=== PATIENT | female | born 1955 | race Caucasian/White ===

== ENCOUNTER 2016-07-28 15:49 | Emergency (ER) | payer OTHER ==
[~2016-07-28] VITALS: Ht 157.5 cm; Wt 46.4 kg
[~2016-07-28 15:49] MED LIST: AMOXICILLIN 8751 TAB PO; ASPI325T6 PO; ASPIRIN 32325 MG/TAB PO; ASPIRIN E.C. 8181 MG PO; ASPIRIN E.C.325 MG PO; BETIMOL 0.5% OPH5 ML OU; BLOOD PRESSURE MEDS; BREO IH; CARDI-OMEGA1000 MG PO; CELEXA40 MG PO; CEPHALEXIN500 M1 PO; CLARITIN 1010 MG/TAB PO; COD LIVER OIL 11 SGL; COLESTID 1GM1 G PO; COREG 3.123.125 MG/T PO; COREG 6.256.25 MG/TA PO; COSOPT OCUMETER10 M1 OP; COZAAR 50MG50 MG/TAB PO; COZAAR100 MG PO; CRESTOR5 MG PO; DESYREL 50MG50 MG PO; ESCITALOPRAM; FORTEO250 MCG/ML SQ; FOSAMAX PO; FUROSEMIDE; KEPPRA 500MG500 MG PO; KEPPRA XR500 MG PO; KLOR-CON M1010 MEQ PO; LANOXIN 0.120.125 MG PO; LASIX 20MG TABL20 MG PO; LASIX 40MG TABL40 MG PO; LIPITOR 40MG TA40 MG PO; LORTAB 5/500 501 TAB PO; METROCREAM CREA45 GM TOP; MIACALCIN NASA3.7 ML NS; NASAL SALINE 4545 ML NS; NORVASC 5MG5 MG/TAB PO; NORVASC5 MG PO; OMEGA-3 1000 MG1 CAP PO; ORACEA40MG; OYSTER CALCIUM500 M1 PO; PEPCID 20MG TAB20 MG PO; PLAVIX 75MG TAB75 MG PO; PRAVACHOL10 MG PO; PROAIR HFA0.09 MG/AC IH; PROTONIX 40MG T40 MG PO; RESTASIS 0.4 M0.4 ML; RESTASIS0.05% OP; TEGRETOL PO; TEMOVATE E TP; TESSALON P100 MG/CAP PO; TIAZAC360 MG PO; TOPROL; TOPROL XL 50MG50 MG PO; VENTOLIN0.09 MG IH; VITAMIN D32000 I1 PO; XALATAN EYE DROPS OD; XALATAN EYE DROPS OP; ZITHROMAX Z PA250 MG PO; ZOCOR PO; ZOFRAN 4MG T4 MG/TAB PO; ZOFRAN ODT4 MG PO; ZYRTEC 10MG10 MG PO; [UNRECOGNIZED DRUG - REMARK]
[2016-07-28 15:51] VITALS: BP 138/65; TEMP 96.9
[2016-07-28 16:56] LABS: PH 5 (5-8); SQUAMOUS EPITHELIAL 0-2 /hpf; URINE APPEARANCE Clear; URINE BACTERIA None Seen /hpf; URINE BILIRUBIN Negative (NEGATIVE); URINE BLOOD Negative (NEGATIVE); URINE COLOR Yellow; URINE GLUCOSE Negative (NEGATIVE); URINE KETONE Negative (NEGATIVE); URINE RBC 0-2 /hpf; URINE UROBILINOGEN Negative (NEGATIVE); URINE WBC 0-2 /hpf
[2016-07-28] MEDS ORDERED: NORCO 325 MG-51 TAB PO (17:45)
[2016-07-28 18:09] VITALS: PULSE 64
== END 2016-07-28 18:10 | disposition home or self-care (01) ==
LOC: COL.ER 15:49
PROVIDERS: Nurse Practitioner
DX: M48.54XA Collapsed vertebra, not elsewhere classified, thoracic region, initial encounter for fracture (principal); W01.198A Fall on same level from slipping, tripping and stumbling with subsequent striking against other object, initial encounter; Z95.2 Presence of prosthetic heart valve
CPT/HCPCS: J1170

== ENCOUNTER → 2016-08-06 | Outpatient (CLI) | payer OTHER ==
[~2016-08-06] MED LIST changes: +ALDACTONE50 MG PO; +AMBIEN 5MG TABLE5 MG PO; +APRESOLINE 10MG10 MG PO; +COZAAR 25MG25 MG/TAB PO; +CRESTOR40 MG PO; +DIGITEK0.125 MG PO; +FERRO-TIME325 MG PO; +FLONASEALLERGY NS; +ISTALOL 2.5 ML2.5 ML OD; +LEVAQUIN 750MG750 M1 PO; +MICRO-K 10 EXT10 MEQ PO; +NORCO 325 MG-51 TAB PO; +OSCAL 500 TAB500 MG PO; +REFRESH PLUS 00.4 M1 OU; +RESTASIS 60VL OU; +ROXICODONE 55 MG/TAB PO; +SPIRIVA RE2.5 MCG/Ac IH; +ULTRAM 50MG TAB50 MG PO; +VIGAMOX 0.5% 3 M3 ML OP; +XANAX 0.5MG0.5 MG PO; +ZOFRAN8 MG PO
== END ==
LOC: COL.RAD 08:36
DX: S22.080A Wedge compression fracture of T11-T12 vertebra, initial encounter for closed fracture (principal)
CPT/HCPCS: A9503

== ENCOUNTER 2016-08-09 12:17 | Outpatient (CLI) | payer OTHER ==
[~2016-08-09] VITALS: Ht 157.5 cm; Wt 46.8 kg
[2016-08-09] VITALS (8 sets, daily range): BP systolic 127–150; BP diastolic 69–87; PULSE 70–77
[~2016-08-09 12:17] MED LIST changes: -ALDACTONE50 MG PO; -AMBIEN 5MG TABLE5 MG PO; -APRESOLINE 10MG10 MG PO; -COZAAR 25MG25 MG/TAB PO; -CRESTOR40 MG PO; -DIGITEK0.125 MG PO; -FERRO-TIME325 MG PO; -FLONASEALLERGY NS; -ISTALOL 2.5 ML2.5 ML OD; -LEVAQUIN 750MG750 M1 PO; -MICRO-K 10 EXT10 MEQ PO; -OSCAL 500 TAB500 MG PO; -REFRESH PLUS 00.4 M1 OU; -RESTASIS 60VL OU; -ROXICODONE 55 MG/TAB PO; -SPIRIVA RE2.5 MCG/Ac IH; -ULTRAM 50MG TAB50 MG PO; -VIGAMOX 0.5% 3 M3 ML OP; -XANAX 0.5MG0.5 MG PO; -ZOFRAN8 MG PO
[2016-08-09] MEDS ORDERED: COREG 3.123.125 MG/T PO (13:50)
[2016-08-09] MEDS ORDERED: ROXICODONE 55 MG/TAB PO (13:50)
[2016-08-09] MEDS ORDERED: CRESTOR40 MG PO (13:52)
[2016-08-09] MEDS ORDERED: COZAAR 25MG25 MG/TAB PO (14:23)
[2016-08-09] MEDS ORDERED: SPIRIVA RE2.5 MCG/Ac IH (14:24)
[2016-08-09] MEDS ORDERED: VIGAMOX 0.5% 3 M3 ML OP (14:24)
[2016-08-09] MEDS ORDERED: PROAIR HFA0.09 MG/AC IH (14:28)
== END 2016-08-09 19:00 | disposition home or self-care (01) ==
LOC: EUO 12:17 → COL.RAD 12:30 → EUO 19:00
DX: S22.088G Other fracture of T11-T12 vertebra, subsequent encounter for fracture with delayed healing (principal); X58.XXXD Exposure to other specified factors, subsequent encounter
CPT/HCPCS: J2250; J3010; J7120

== ENCOUNTER 2016-09-12 03:35 | Observation (INO) | payer OTHER ==
[~2016-09-12] VITALS: Ht 160 cm; Wt 48.0 kg
[~2016-09-12 03:35] MED LIST changes: +COZAAR 25MG25 MG/TAB PO; +CRESTOR40 MG PO; +ROXICODONE 55 MG/TAB PO; +SPIRIVA RE2.5 MCG/Ac IH; +VIGAMOX 0.5% 3 M3 ML OP
[2016-09-12] MEDS ORDERED: ZOFRAN8 MG PO (03:53)
[2016-09-12] MEDS ORDERED: ULTRAM 50MG TAB50 MG PO (03:53)
[2016-09-12 04:29] LABS: BASO # 0.1 (0.0-0.2); BASO % 0.9 % (0.0-2.0); EOS # 0.3 (0.0-0.7); EOS % 3.3 % (0-4.0); GRAN # 4.9 (1.4-6.5); GRAN % 59.1 % (42.2-75.2); HEMATOCRIT 40.3 % (37.0-47.0); HEMOGLOBIN 14.3 g/dl (12.5-16.0); LYMPH # 2.1 (1.2-3.4); LYMPH % 25.2 % (20.0-51.0); MEAN CELL VOLUME 96 fl (80.0-100.0); MEAN CORPUSCULAR HEMOGLOBIN 34 pg (27.0-31.0); MEAN CORPUSCULAR HGB CONC 36 g/dl (33.0-37.0); MEAN PLATELET VOLUME 9.4 fl (7.4-10.4); MONO # 0.9 (0.1-0.6); MONO % 11.1 % (1.7-9.3); PLATELET COUNT 258 K/mm3 (130-400); RED BLOOD COUNT 4.22 M/mm3 (4.10-5.30); REDCELL DISTRIBUTION WIDTH-CV 13.5 % (11.5-14.5); WHITE BLOOD COUNT 8.2 K/mm3 (4.8-10.8)
[2016-09-12 04:36] LABS: CALCIUM 9.5 mg/dL (8.4-10.2); CREATININE, serum 0.77 mg/dL (0.52-1.25); POTASSIUM 4.2 mmol/L (3.4-5.0)
[2016-09-12 04:49] LABS: TROPONIN-I 0.038 ng/mL (0.000-0.034)
[2016-09-12 06:01] VITALS: BP 143/76; PULSE 69; TEMP 97.6
[2016-09-12] MEDS ORDERED: NORCO 325 MG-51 TAB PO (06:24)
[2016-09-12 08:56] VITALS: BP 116/69; PULSE 70; TEMP 97.5
[2016-09-12 12:02] VITALS: BP 130/93; PULSE 63; TEMP 97.5
[2016-09-12 16:02] VITALS: BP 132/62; PULSE 70; TEMP 97.6
[2016-09-12 19:49] VITALS: BP 119/67; PULSE 70; TEMP 97.6
[2016-09-13 00:08] VITALS: BP 124/62; PULSE 113; TEMP 97.4
[2016-09-13 04:37] VITALS: BP 129/70; PULSE 70; TEMP 97.9
[2016-09-13 07:41] LABS: CALCIUM 9.5 mg/dL (8.4-10.2); CREATININE, serum 0.93 mg/dL (0.52-1.25); POTASSIUM 4.1 mmol/L (3.4-5.0)
[2016-09-13 07:53] LABS: TROPONIN-I 0.04 ng/mL (0.000-0.034)
[2016-09-13 08:20] VITALS: BP 131/67; PULSE 69; TEMP 97.9
[2016-09-13] MEDS ORDERED: ZITHROMAX Z PA250 MG PO (12:20)
[2016-09-13 12:21] VITALS: BP 144/71; PULSE 70; TEMP 97.8
[2016-09-13] MEDS ORDERED: FLONASEALLERGY NS (13:12)
[2016-09-13] MEDS ORDERED: ZYRTEC 10MG10 MG PO (13:36)
[2016-09-14] MEDS ORDERED: LEVAQUIN 750MG750 M1 PO (23:40)
== END 2016-09-13 15:17 | disposition home or self-care (01) ==
LOC: COL.ER 03:35 → MEDICAL 05:11
PROVIDERS: Emergency Medicine; Nurse Practitioner Family
DX: R06.00 Dyspnea, unspecified (principal); J90 Pleural effusion, not elsewhere classified; R79.89 Other specified abnormal findings of blood chemistry; E44.0 Moderate protein-calorie malnutrition; Z68.1 Body mass index [BMI] 19.9 or less, adult; Z98.890 Other specified postprocedural states; E87.1 Hypo-osmolality and hyponatremia; I34.0 Nonrheumatic mitral (valve) insufficiency; I10 Essential (primary) hypertension; E78.5 Hyperlipidemia, unspecified; M81.0 Age-related osteoporosis without current pathological fracture; G40.909 Epilepsy, unspecified, not intractable, without status epilepticus; I49.5 Sick sinus syndrome; I25.10 Atherosclerotic heart disease of native coronary artery without angina pectoris; Z95.0 Presence of cardiac pacemaker; I50.42 Chronic combined systolic (congestive) and diastolic (congestive) heart failure; Z95.5 Presence of coronary angioplasty implant and graft; Z87.891 Personal history of nicotine dependence
CPT/HCPCS: A9284; G0378; J1940; J7512

== ENCOUNTER 2016-09-14 21:08 | Emergency (ER) | payer OTHER ==
[~2016-09-14] VITALS: Ht 160 cm; Wt 47.3 kg
[~2016-09-14 21:08] MED LIST changes: +FLONASEALLERGY NS; +ULTRAM 50MG TAB50 MG PO; +ZOFRAN8 MG PO
[2016-09-14 21:09] VITALS: TEMP 97.5
[2016-09-14 22:35] LABS: BASO # 0.1 (0.0-0.2); BASO % 0.6 % (0.0-2.0); EOS # 0.3 (0.0-0.7); EOS % 2.5 % (0-4.0); GRAN % 74.6 % (42.2-75.2); HEMATOCRIT 43.4 % (37.0-47.0); HEMOGLOBIN 14.9 g/dl (12.5-16.0); LYMPH # 1.6 (1.2-3.4); LYMPH % 12.1 % (20.0-51.0); MEAN CELL VOLUME 97 fl (80.0-100.0); MEAN CORPUSCULAR HEMOGLOBIN 33 pg (27.0-31.0); MEAN CORPUSCULAR HGB CONC 34 g/dl (33.0-37.0); MEAN PLATELET VOLUME 9.2 fl (7.4-10.4); MONO # 1.3 (0.1-0.6); MONO % 9.7 % (1.7-9.3); PLATELET COUNT 261 K/mm3 (130-400); RED BLOOD COUNT 4.46 M/mm3 (4.10-5.30); REDCELL DISTRIBUTION WIDTH-CV 13.7 % (11.5-14.5); WHITE BLOOD COUNT 13.4 K/mm3 (4.8-10.8)
[2016-09-14 22:42] LABS: VENOUS BLOOD GAS BE -4.7 (-4-4); VENOUS BLOOD GAS SAO2 87.7 % (60-80); VENOUS BLOOD GAS SITE VENIPUNCTURE
[2016-09-14 22:48] LABS: CREATININE, serum 0.65 mg/dL (0.52-1.25); POTASSIUM 4.7 mmol/L (3.4-5.0)
[2016-09-14] MEDS ORDERED: LEVAQUIN 750MG750 M1 PO (23:40)
[2016-09-14 23:44] LABS: TROPONIN-I 0.028 ng/mL (0.000-0.034)
[2016-09-15 00:15] VITALS: BP 128/68; PULSE 64
== END 2016-09-15 00:20 | disposition home or self-care (01) ==
LOC: COL.ER 21:08
PROVIDERS: Emergency Medicine
DX: J90 Pleural effusion, not elsewhere classified (principal); I11.0 Hypertensive heart disease with heart failure; I50.9 Heart failure, unspecified; Z87.891 Personal history of nicotine dependence; Z95.0 Presence of cardiac pacemaker; Z79.02 Long term (current) use of antithrombotics/antiplatelets; I25.10 Atherosclerotic heart disease of native coronary artery without angina pectoris; I25.2 Old myocardial infarction; G40.909 Epilepsy, unspecified, not intractable, without status epilepticus; I49.5 Sick sinus syndrome; F41.9 Anxiety disorder, unspecified
CPT/HCPCS: J1940; J2060; J2405; Q9967

== ENCOUNTER → 2016-09-23 | Outpatient (CLI) | payer OTHER ==
[~2016-09-23] VITALS: Ht 162.6 cm; Wt 47.3 kg
[~2016-09-23] MED LIST changes: +ALDACTONE50 MG PO; +AMBIEN 5MG TABLE5 MG PO; +APRESOLINE 10MG10 MG PO; +DIGITEK0.125 MG PO; +FERRO-TIME325 MG PO; +ISTALOL 2.5 ML2.5 ML OD; +LEVAQUIN 750MG750 M1 PO; +MICRO-K 10 EXT10 MEQ PO; +OSCAL 500 TAB500 MG PO; +REFRESH PLUS 00.4 M1 OU; +RESTASIS 60VL OU; +XANAX 0.5MG0.5 MG PO
[2016-09-23 12:01] VITALS: BP 99/52; PULSE 70
[2016-09-23 13:51] VITALS: BP 109/70; PULSE 70
== END ==
LOC: COL.RAD 11:10
DX: J90 Pleural effusion, not elsewhere classified (principal); Z95.810 Presence of automatic (implantable) cardiac defibrillator; I51.7 Cardiomegaly
CPT/HCPCS: 19804

== ENCOUNTER 2016-10-30 08:26 | Outpatient (CLI) | payer OTHER ==
[~2016-10-30] VITALS: Ht 157.5 cm; Wt 46.6 kg
[~2016-10-30 08:26] MED LIST changes: -ALDACTONE50 MG PO; -AMBIEN 5MG TABLE5 MG PO; -APRESOLINE 10MG10 MG PO; -DIGITEK0.125 MG PO; -FERRO-TIME325 MG PO; -ISTALOL 2.5 ML2.5 ML OD; -MICRO-K 10 EXT10 MEQ PO; -OSCAL 500 TAB500 MG PO; -REFRESH PLUS 00.4 M1 OU; -RESTASIS 60VL OU; -XANAX 0.5MG0.5 MG PO
[2016-10-30] MEDS ORDERED: APRESOLINE 10MG10 MG PO (09:12)
[2016-10-30] MEDS ORDERED: REFRESH PLUS 00.4 M1 OU (09:13)
[2016-10-30] MEDS ORDERED: FERRO-TIME325 MG PO (09:15)
[2016-10-30] MEDS ORDERED: XANAX 0.5MG0.5 MG PO (09:20)
[2016-10-30] MEDS ORDERED: MICRO-K 10 EXT10 MEQ PO (09:20)
[2016-10-30 09:36] VITALS: BP 132/74; PULSE 68; TEMP 97.2
[2016-10-30 10:35] VITALS: BP 132/74; PULSE 70; TEMP 97.4
[2016-10-30 10:50] VITALS: BP 109/67; PULSE 70
[2016-10-30 10:59] VITALS: BP 109/62; PULSE 70
[2016-10-30 12:25] LABS: PLEURAL FLUID - PMN 5.4 % (0-25)
[2016-10-30 12:31] LABS: GLUCOSE,PLEURAL FLUID 87 mg/dL
[2016-10-30 14:12] LABS: PLEURAL FLUID LEFT SIDE; PLEURAL FLUID APPEARANCE HAZY; PLEURAL FLUID COLOR YELLOW
== END 2016-10-30 12:29 | disposition home or self-care (01) ==
LOC: SDCO 08:26
PROVIDERS: Internal Medicine Pulmonary Disease
DX: J90 Pleural effusion, not elsewhere classified (principal); J44.9 Chronic obstructive pulmonary disease, unspecified; R91.8 Other nonspecific abnormal finding of lung field; I10 Essential (primary) hypertension; E78.5 Hyperlipidemia, unspecified; I50.1 Left ventricular failure, unspecified; Z79.01 Long term (current) use of anticoagulants; Z87.891 Personal history of nicotine dependence; G47.33 Obstructive sleep apnea (adult) (pediatric); Z80.1 Family history of malignant neoplasm of trachea, bronchus and lung; Z95.0 Presence of cardiac pacemaker; J32.9 Chronic sinusitis, unspecified

== ENCOUNTER 2016-11-20 14:20 | Emergency (ER) | payer OTHER ==
[~2016-11-20] VITALS: Ht 157.5 cm; Wt 45.5 kg
[~2016-11-20 14:20] MED LIST changes: +APRESOLINE 10MG10 MG PO; +FERRO-TIME325 MG PO; +MICRO-K 10 EXT10 MEQ PO; +REFRESH PLUS 00.4 M1 OU; +XANAX 0.5MG0.5 MG PO
[2016-11-20 14:23] VITALS: TEMP 97.6
[2016-11-20 15:57] LABS: BASO # 0.1 (0.0-0.2); BASO % 0.7 % (0.0-2.0); EOS # 0.1 (0.0-0.7); EOS % 1.5 % (0-4.0); GRAN # 4.3 (1.4-6.5); HEMATOCRIT 42.3 % (37.0-47.0); HEMOGLOBIN 14.9 g/dl (12.5-16.0); LYMPH # 1.3 (1.2-3.4); LYMPH % 19.8 % (20.0-51.0); MEAN CELL VOLUME 96 fl (80.0-100.0); MEAN CORPUSCULAR HEMOGLOBIN 34 pg (27.0-31.0); MEAN CORPUSCULAR HGB CONC 35 g/dl (33.0-37.0); MEAN PLATELET VOLUME 9.7 fl (7.4-10.4); MONO # 0.9 (0.1-0.6); MONO % 13.7 % (1.7-9.3); PLATELET COUNT 232 K/mm3 (130-400); RED BLOOD COUNT 4.39 M/mm3 (4.10-5.30); WHITE BLOOD COUNT 6.7 K/mm3 (4.8-10.8)
[2016-11-20 16:16] LABS: DIGOXIN < 0.4 ng/mL (0.8-2.0)
[2016-11-20 16:17] LABS: ANION GAP 11 mmol/L (7-16); BLOOD UREA NITROGEN 24 mg/dL (7-17); C-REACTIVE PROTEIN 0.7 mg/dL (0.0-0.9); CALCIUM 9.8 mg/dL (8.4-10.2); CARBON DIOXIDE 24 mmol/L (22-30); CHLORIDE 94 mmol/L (98-107); CREATININE, serum 0.81 mg/dL (0.52-1.25); GLUCOSE 98 mg/dL (74-106); SODIUM 129 mmol/L (137-145)
[2016-11-20 16:18] LABS: PROTHROMBIN TIME 11.3 SECONDS (9.7-12.8)
[2016-11-20 16:25] LABS: B-TYPE NATRIURETIC PEPTIDE 7770 pg/mL (0-125); TROPONIN-I 0.028 ng/mL (0.000-0.034)
[2016-11-20 16:42] LABS: ERYTHROCYTE SEDIMENTATION RATE 14 mm/hr (0-30)
[2016-11-20] MEDS ORDERED: ULTRAM 50MG TAB50 MG PO (16:49)
[2016-11-20] MEDS ORDERED: LASIX 20MG TABL20 MG PO (16:53)
[2016-11-20 17:55] VITALS: BP 158/107; PULSE 71
[2016-11-20] MEDS ORDERED: PLAVIX 75MG TAB75 MG PO (18:04)
[2016-11-20] MEDS ORDERED: AMBIEN 5MG TABLE5 MG PO (18:04)
[2016-11-20] MEDS ORDERED: RESTASIS 60VL OU (18:05)
[2016-11-20] MEDS ORDERED: OSCAL 500 TAB500 MG PO (18:06)
== END 2016-11-20 17:55 | disposition home or self-care (01) ==
LOC: COL.ER 14:20
PROVIDERS: Emergency Medicine
DX: J90 Pleural effusion, not elsewhere classified (principal); R51 Headache; I50.9 Heart failure, unspecified; E87.1 Hypo-osmolality and hyponatremia; F32.9 Major depressive disorder, single episode, unspecified; Z95.0 Presence of cardiac pacemaker
CPT/HCPCS: J1170; J1940; J2405

== ENCOUNTER 2016-11-21 20:00 | Inpatient (IN) | payer OTHER ==
[~2016-11-21] VITALS: Ht 157.5 cm; Wt 46.2 kg
[~2016-11-21 20:00] MED LIST changes: +AMBIEN 5MG TABLE5 MG PO; +OSCAL 500 TAB500 MG PO; +RESTASIS 60VL OU
[2016-11-21 21:47] VITALS: BP 112/72; PULSE 70; TEMP 98
[2016-11-22] VITALS (369 sets, daily range): BP systolic 113–137; BP diastolic 59–84; PULSE 63–70; TEMP 97.3–98.8; O2SAT 73–100
[2016-11-22 04:51] LABS: WHITE BLOOD COUNT 6.1 K/mm3 (4.8-10.8)
[2016-11-22 04:52] LABS: BASO # 0.1 (0.0-0.2); BASO % 0.8 % (0.0-2.0); EOS # 0.2 (0.0-0.7); EOS % 2.5 % (0-4.0); GRAN # 3.8 (1.4-6.5); GRAN % 62.4 % (42.2-75.2); HEMATOCRIT 39.3 % (37.0-47.0); HEMOGLOBIN 13.6 g/dl (12.5-16.0); LYMPH # 1.2 (1.2-3.4); LYMPH % 20.1 % (20.0-51.0); MEAN CELL VOLUME 98 fl (80.0-100.0); MEAN CORPUSCULAR HEMOGLOBIN 34 pg (27.0-31.0); MEAN CORPUSCULAR HGB CONC 35 g/dl (33.0-37.0); MEAN PLATELET VOLUME 9.7 fl (7.4-10.4); MONO # 0.8 (0.1-0.6); MONO % 13.9 % (1.7-9.3); PLATELET COUNT 207 K/mm3 (130-400); RED BLOOD COUNT 4.03 M/mm3 (4.10-5.30)
[2016-11-22 04:54] LABS: ADJUSTED CALCIUM 9.3 mg/dL (8.4-10.2); ALBUMIN 3.6 gm/dL (3.5-5.0); BILIRUBIN,TOTAL 0.8 mg/dL (0.0-1.0); CREATININE, serum 1.07 mg/dL (0.52-1.25); POTASSIUM 4.1 mmol/L (3.4-5.0); TOTAL PROTEIN 6.7 gm/dL (6.4-8.2)
[2016-11-22 04:56] LABS: INR 1.1 (0.8-3.0); PROTHROMBIN TIME 12.1 SECONDS (9.7-12.8)
[2016-11-22] MEDS ORDERED: ISTALOL 2.5 ML2.5 ML OD (08:14)
[2016-11-22 08:30] LABS: PH 6 (5-8); SQUAMOUS EPITHELIAL 0-2 /hpf; URINE APPEARANCE Clear; URINE BACTERIA None Seen /hpf; URINE BILIRUBIN Negative (NEGATIVE); URINE BLOOD Negative (NEGATIVE); URINE COLOR Yellow; URINE GLUCOSE Negative (NEGATIVE); URINE KETONE Negative (NEGATIVE); URINE RBC 0-2 /hpf; URINE UROBILINOGEN Negative (NEGATIVE)
[2016-11-22] MEDS ORDERED: LASIX 20MG TABL20 MG PO (13:56)
[2016-11-23] VITALS (9 sets, daily range): BP systolic 101–128; BP diastolic 51–82; PULSE 68–74; TEMP 97.5–98.7; O2SAT 90–92
[2016-11-23 05:57] LABS: BASO # 0.1 (0.0-0.2); BASO % 0.8 % (0.0-2.0); EOS # 0.3 (0.0-0.7); EOS % 3.4 % (0-4.0); GRAN # 4.4 (1.4-6.5); GRAN % 61.2 % (42.2-75.2); HEMATOCRIT 42.5 % (37.0-47.0); HEMOGLOBIN 14.2 g/dl (12.5-16.0); LYMPH # 1.4 (1.2-3.4); LYMPH % 19.8 % (20.0-51.0); MEAN CELL VOLUME 101 fl (80.0-100.0); MEAN CORPUSCULAR HEMOGLOBIN 34 pg (27.0-31.0); MEAN CORPUSCULAR HGB CONC 33 g/dl (33.0-37.0); MONO # 1.1 (0.1-0.6); MONO % 14.5 % (1.7-9.3); PLATELET COUNT 250 K/mm3 (130-400); RED BLOOD COUNT 4.22 M/mm3 (4.10-5.30); REDCELL DISTRIBUTION WIDTH-CV 15.2 % (11.5-14.5); WHITE BLOOD COUNT 7.3 K/mm3 (4.8-10.8)
[2016-11-23 06:08] LABS: CREATININE, serum 1.02 mg/dL (0.52-1.25); MAGNESIUM 1.8 mg/dL (1.6-2.3); POTASSIUM 3.6 mmol/L (3.4-5.0)
[2016-11-24 03:42] VITALS: BP 125/62; PULSE 70; TEMP 98
[2016-11-24 07:27] VITALS: BP 125/74; PULSE 70; TEMP 97.5
[2016-11-24 07:31] LABS: ADJUSTED CALCIUM 9.6 mg/dL (8.4-10.2); ALBUMIN 3.8 gm/dL (3.5-5.0); BILIRUBIN,TOTAL 0.9 mg/dL (0.0-1.0); CALCIUM 9.4 mg/dL (8.4-10.2); POTASSIUM 3.7 mmol/L (3.4-5.0); TOTAL PROTEIN 7.2 gm/dL (6.4-8.2)
[2016-11-24 11:16] VITALS: BP 120/57; PULSE 70; TEMP 98.1
[2016-11-24 15:13] VITALS: BP 101/50; PULSE 70; TEMP 97.6
[2016-11-24 21:35] VITALS: BP 112/58; PULSE 68; TEMP 98.7
[2016-11-25 00:34] VITALS: BP 112/50; PULSE 70; TEMP 98.2
[2016-11-25 03:10] VITALS: BP 124/57; PULSE 70; TEMP 98.4
[2016-11-25 07:35] LABS: ADJUSTED CALCIUM 9.9 mg/dL (8.4-10.2); ALBUMIN 3.6 gm/dL (3.5-5.0); BILIRUBIN,TOTAL 0.8 mg/dL (0.0-1.0); CALCIUM 9.6 mg/dL (8.4-10.2); CREATININE, serum 0.96 mg/dL (0.52-1.25); MAGNESIUM 2.2 mg/dL (1.6-2.3); POTASSIUM 3.6 mmol/L (3.4-5.0); TOTAL PROTEIN 6.8 gm/dL (6.4-8.2)
[2016-11-25 09:08] VITALS: BP 134/60; PULSE 69; TEMP 97.9
[2016-11-25 10:58] VITALS: BP 99/55; PULSE 70; TEMP 98.3
[2016-11-25] MEDS ORDERED: DIGITEK0.125 MG PO (11:03)
[2016-11-25] MEDS ORDERED: COZAAR 25MG25 MG/TAB PO (11:04)
[2016-11-25] MEDS ORDERED: ALDACTONE50 MG PO (11:05)
[2016-11-25] MEDS ORDERED: LASIX 40MG TABL40 MG PO (11:08)
== END 2016-11-25 14:36 | disposition home or self-care (01) | DRG 291 ==
LOC: MEDICAL 20:00 → ICU 21:34 → MEDICAL 21:43 → ICU 11-22 11:23 → MEDICAL 11-23 18:33
PROVIDERS: Family Medicine; Internal Medicine Interventional Cardiology; Nurse Practitioner Family
PROC: 0W9B3ZX Drainage of Left Pleural Cavity, Percutaneous Approach, Diagnostic (ICD-10-PCS; principal; 2016-11-22)
DX: I13.0 Hypertensive heart and chronic kidney disease with heart failure and stage 1 through stage 4 chronic kidney disease, or unspecified chronic kidney disease (principal); I50.23 Acute on chronic systolic (congestive) heart failure; E87.1 Hypo-osmolality and hyponatremia; J90 Pleural effusion, not elsewhere classified; Z68.1 Body mass index [BMI] 19.9 or less, adult; Z95.0 Presence of cardiac pacemaker; Z95.2 Presence of prosthetic heart valve; I25.5 Ischemic cardiomyopathy; I25.10 Atherosclerotic heart disease of native coronary artery without angina pectoris; Z95.5 Presence of coronary angioplasty implant and graft; M81.0 Age-related osteoporosis without current pathological fracture; Z87.891 Personal history of nicotine dependence; N18.9 Chronic kidney disease, unspecified; R63.6 Underweight; F32.9 Major depressive disorder, single episode, unspecified
CPT/HCPCS: 99223-AI; 99232-AI; 99233-AI; 99239; C1751; J1644; J2270; J2405

== ENCOUNTER 2017-03-10 18:10 | Inpatient (IN) | payer OTHER ==
[2017-03-10] VITALS (48 sets, daily range): BP systolic 135; BP diastolic 72; PULSE 69; TEMP 97.5; O2SAT 92–98
[~2017-03-10] VITALS: Ht 160 cm; Wt 46.0 kg
[~2017-03-10 18:10] MED LIST changes: +ALDACTONE50 MG PO; +DIGITEK0.125 MG PO; +ISTALOL 2.5 ML2.5 ML OD
[2017-03-10 18:47] LABS: BASO % 0.4 % (0.0-2.0); EOS % 0.1 % (0-4.0); GRAN # 8.5 (1.4-6.5); GRAN % 79.9 % (42.2-75.2); HEMATOCRIT 43.8 % (37.0-47.0); HEMOGLOBIN 15.2 g/dl (12.5-16.0); LYMPH # 1.1 (1.2-3.4); LYMPH % 10.3 % (20.0-51.0); MEAN CELL VOLUME 98 fl (80.0-100.0); MEAN CORPUSCULAR HEMOGLOBIN 34 pg (27.0-31.0); MEAN CORPUSCULAR HGB CONC 35 g/dl (33.0-37.0); MEAN PLATELET VOLUME 9.6 fl (7.4-10.4); MONO # 0.9 (0.1-0.6); MONO % 8.8 % (1.7-9.3); PLATELET COUNT 233 K/mm3 (130-400); RED BLOOD COUNT 4.45 M/mm3 (4.10-5.30); WHITE BLOOD COUNT 10.7 K/mm3 (4.8-10.8)
[2017-03-10 18:53] LABS: PROTHROMBIN TIME 11.5 SECONDS (9.7-12.8)
[2017-03-10 19:06] LABS: ADJUSTED CALCIUM 9.5 mg/dL (8.4-10.2); ALBUMIN 4.5 gm/dL (3.5-5.0); BILIRUBIN,TOTAL 1.3 mg/dL (0.0-1.0); CALCIUM 9.9 mg/dL (8.4-10.2); CREATININE, serum 0.73 mg/dL (0.52-1.25); POTASSIUM 4.7 mmol/L (3.4-5.0); TOTAL PROTEIN 8.2 gm/dL (6.4-8.2)
[2017-03-10 19:18] LABS: TROPONIN-I 0.033 ng/mL (0.000-0.034)
[2017-03-10 22:03] LABS: ARTERIAL BLD GAS O2 SATURATION 91.2 % (92-100); ARTERIAL BLD GAS TCO2 CT 24.9; ARTERIAL BLOOD GAS BASE EXCESS 0.1 (-2-2); ARTERIAL BLOOD GAS HCO3 23.8 meq/L (22-26); ARTERIAL BLOOD GAS PHT 7.44 C (7.35-7.45); ARTERIAL BLOOD GAS PO2 62.8 mmHg (80-100); ARTERIAL BLOOD GAS PO2T 62.8 (80-100); ARTERIAL BLOOD GAS pH 7.44 (7.35-7.45); OXYHEMOGLOBIN 89.8 %
[2017-03-10 22:04] LABS: ALLEN TEST NO; ATS? YES
[2017-03-10 22:43] LABS: TROPONIN-I 3 HR POST INITIAL 0.04 ng/mL (0.000-0.034)
[2017-03-10 23:12] LABS: MAGNESIUM 1.8 mg/dL (1.6-2.3)
[2017-03-10 23:43] LABS: THYROID STIMULATING HORMONE 3.07 uIU/mL (0.465-4.680)
[2017-03-11] VITALS (736 sets, daily range): BP systolic 99–125; BP diastolic 52–82; PULSE 69–70; TEMP 97.3–98.6; O2SAT 78–100
[2017-03-11] MEDS ORDERED: PROAIR HFA0.09 MG/AC IH (00:05)
[2017-03-11 00:29] LABS: COLLECTION METHOD CLEAN CATCH
[2017-03-11 00:48] LABS: CALCIUM 9.6 mg/dL (8.4-10.2); CREATININE, serum 0.78 mg/dL (0.52-1.25); POTASSIUM 3.9 mmol/L (3.4-5.0)
[2017-03-11 00:49] LABS: PH 7 (5-8); SQUAMOUS EPITHELIAL None Seen /hpf; URINE APPEARANCE Clear; URINE BACTERIA None Seen /hpf; URINE BILIRUBIN Negative (NEGATIVE); URINE BLOOD Negative (NEGATIVE); URINE COLOR Straw; URINE GLUCOSE Negative (NEGATIVE); URINE KETONE Negative (NEGATIVE); URINE LEUKOCYTE ESTERASE Negative (NEGATIVE); URINE PROTEIN(semi-quant) 1+ (NEGATIVE); URINE RBC 0-2 /hpf; URINE UROBILINOGEN Negative (NEGATIVE); URINE WBC 0-2 /hpf
[2017-03-11 01:04] LABS: TROPONIN-I 6 HR POST INITIAL 0.04 ng/mL (0.000-0.034)
[2017-03-11 05:55] LABS: BASO % 0.5 % (0.0-2.0); EOS # 0.2 (0.0-0.7); EOS % 2.7 % (0-4.0); GRAN # 4.9 (1.4-6.5); GRAN % 65.4 % (42.2-75.2); HEMATOCRIT 44.2 % (37.0-47.0); HEMOGLOBIN 15.3 g/dl (12.5-16.0); LYMPH # 1.3 (1.2-3.4); LYMPH % 17.6 % (20.0-51.0); MEAN CELL VOLUME 98 fl (80.0-100.0); MEAN CORPUSCULAR HEMOGLOBIN 34 pg (27.0-31.0); MEAN CORPUSCULAR HGB CONC 35 g/dl (33.0-37.0); MEAN PLATELET VOLUME 9.7 fl (7.4-10.4); MONO % 13.5 % (1.7-9.3); PLATELET COUNT 246 K/mm3 (130-400); RED BLOOD COUNT 4.49 M/mm3 (4.10-5.30); WHITE BLOOD COUNT 7.5 K/mm3 (4.8-10.8)
[2017-03-11 06:15] LABS: CALCIUM 9.8 mg/dL (8.4-10.2); CHOLESTEROL RISK RATIO 2.1; CREATININE, serum 0.81 mg/dL (0.52-1.25); POTASSIUM 3.8 mmol/L (3.4-5.0)
[2017-03-11 06:26] LABS: TROPONIN-I 0.038 ng/mL (0.000-0.034)
[2017-03-11 08:32] LABS: CALCIUM 9.9 mg/dL (8.4-10.2); CREATININE, serum 0.82 mg/dL (0.52-1.25); POTASSIUM 3.8 mmol/L (3.4-5.0)
[2017-03-11 12:35] LABS: CALCIUM 9.6 mg/dL (8.4-10.2); CREATININE, serum 0.81 mg/dL (0.52-1.25); POTASSIUM 3.9 mmol/L (3.4-5.0)
[2017-03-11 13:50] LABS: PLEURAL FLUID WBC 0 /mm3
[2017-03-11 14:12] LABS: GLUCOSE,PLEURAL FLUID 101 mg/dL
[2017-03-11 20:29] LABS: CALCIUM 9.3 mg/dL (8.4-10.2); CREATININE, serum 0.97 mg/dL (0.52-1.25); POTASSIUM 4.6 mmol/L (3.4-5.0)
[2017-03-12 04:50] VITALS: BP 110/66; PULSE 70; TEMP 98
[2017-03-12 06:22] LABS: PLEURAL FLUID APPEARANCE CLEAR; PLEURAL FLUID COLOR YELLOW
[2017-03-12 06:25] LABS: BASO # 0.1 (0.0-0.2); BASO % 0.6 % (0.0-2.0); EOS # 0.4 (0.0-0.7); EOS % 4.5 % (0-4.0); GRAN # 5.3 (1.4-6.5); GRAN % 60.3 % (42.2-75.2); HEMATOCRIT 43.5 % (37.0-47.0); HEMOGLOBIN 15.1 g/dl (12.5-16.0); LYMPH # 1.7 (1.2-3.4); LYMPH % 19.2 % (20.0-51.0); MEAN CELL VOLUME 98 fl (80.0-100.0); MEAN CORPUSCULAR HEMOGLOBIN 34 pg (27.0-31.0); MEAN CORPUSCULAR HGB CONC 35 g/dl (33.0-37.0); MEAN PLATELET VOLUME 9.6 fl (7.4-10.4); MONO # 1.3 (0.1-0.6); MONO % 15.1 % (1.7-9.3); PLATELET COUNT 223 K/mm3 (130-400); RED BLOOD COUNT 4.46 M/mm3 (4.10-5.30); WHITE BLOOD COUNT 8.7 K/mm3 (4.8-10.8)
[2017-03-12 06:27] LABS: PLEURAL FLUID LEFT SIDE
[2017-03-12 06:37] LABS: CALCIUM 9.2 mg/dL (8.4-10.2); CREATININE, serum 0.93 mg/dL (0.52-1.25); POTASSIUM 3.9 mmol/L (3.4-5.0)
[2017-03-12 07:52] VITALS: BP 105/62; PULSE 70; TEMP 97.9
[2017-03-12 11:25] VITALS: BP 109/76; PULSE 69; TEMP 97.4
[2017-03-12 16:09] VITALS: BP 116/44; PULSE 70; TEMP 97.9
[2017-03-12 19:14] VITALS: BP 131/59; PULSE 70; TEMP 98.4
[2017-03-12 23:57] VITALS: BP 124/61; PULSE 70; TEMP 98.3
[2017-03-13 04:49] VITALS: BP 112/62; PULSE 94; TEMP 97.5
[2017-03-13 06:47] LABS: BASO # 0.1 (0.0-0.2); BASO % 0.8 % (0.0-2.0); EOS # 0.4 (0.0-0.7); EOS % 5.2 % (0-4.0); GRAN # 4.2 (1.4-6.5); GRAN % 55.9 % (42.2-75.2); HEMOGLOBIN 15.3 g/dl (12.5-16.0); LYMPH # 1.6 (1.2-3.4); LYMPH % 20.7 % (20.0-51.0); MEAN CELL VOLUME 98 fl (80.0-100.0); MEAN CORPUSCULAR HEMOGLOBIN 34 pg (27.0-31.0); MEAN CORPUSCULAR HGB CONC 35 g/dl (33.0-37.0); MEAN PLATELET VOLUME 9.7 fl (7.4-10.4); MONO # 1.3 (0.1-0.6); MONO % 17.1 % (1.7-9.3); PLATELET COUNT 230 K/mm3 (130-400); RED BLOOD COUNT 4.51 M/mm3 (4.10-5.30); WHITE BLOOD COUNT 7.5 K/mm3 (4.8-10.8)
[2017-03-13 07:03] LABS: CALCIUM 9.5 mg/dL (8.4-10.2); CREATININE, serum 0.88 mg/dL (0.52-1.25); POTASSIUM 3.7 mmol/L (3.4-5.0)
[2017-03-13 07:53] VITALS: BP 115/59; PULSE 68; TEMP 98.4
[2017-03-13] MEDS ORDERED: MIRALAX PA17 GM/Dose PO (10:31)
== END 2017-03-13 13:00 | disposition home or self-care (01) | DRG 291 ==
LOC: COL.ER 18:10 → ICU 21:50 → MEDICAL 03-11 15:40
PROVIDERS: Emergency Medicine; Internal Medicine Pulmonary Disease; Nurse Practitioner Family
PROC: 0W9B3ZX Drainage of Left Pleural Cavity, Percutaneous Approach, Diagnostic (ICD-10-PCS; principal; 2017-03-11)
DX: I13.0 Hypertensive heart and chronic kidney disease with heart failure and stage 1 through stage 4 chronic kidney disease, or unspecified chronic kidney disease (principal); I50.43 Acute on chronic combined systolic (congestive) and diastolic (congestive) heart failure; E87.1 Hypo-osmolality and hyponatremia; E44.0 Moderate protein-calorie malnutrition; Z68.1 Body mass index [BMI] 19.9 or less, adult; J90 Pleural effusion, not elsewhere classified; Z95.810 Presence of automatic (implantable) cardiac defibrillator; Z95.2 Presence of prosthetic heart valve; I25.10 Atherosclerotic heart disease of native coronary artery without angina pectoris; Z95.5 Presence of coronary angioplasty implant and graft; J44.9 Chronic obstructive pulmonary disease, unspecified; N18.9 Chronic kidney disease, unspecified; Z87.891 Personal history of nicotine dependence
CPT/HCPCS: 99223-AI; 99233-AI; 99239; J1940; J2270

== ENCOUNTER → 2017-03-14 | Outpatient (CLI) | payer OTHER ==
[~2017-03-14] MED LIST changes: +MIRALAX PA17 GM/Dose PO
== END ==
LOC: BHSO 12:48
DX: F06.32 Mood disorder due to known physiological condition with major depressive-like episode (principal)
CPT/HCPCS: 90791-AI

== ENCOUNTER → 2017-04-16 | Outpatient (CLI) | payer OTHER ==
[~2017-04-16] MED LIST changes: +ENTRESTO 24 MG1 EACH PO; +LOPRESSOR 225 MG/TAB PO; +XANAX .25M0.25 MG/TA PO
== END ==
LOC: BHSO 13:57
DX: F06.32 Mood disorder due to known physiological condition with major depressive-like episode (principal)